=== PATIENT | male | born 1990 | race Caucasian/White ===

== ENCOUNTER 2025-04-27 03:04 | Emergency (ER) | payer OTHER, BC ==
[2025-04-27] MEDS ORDERED: Ibuprofen 200 MG TAB ONE (03:14)
== END 2025-04-27 04:53 | disposition home or self-care (01) ==
LOC: CSHERS 03:04
DX: S20.212A Contusion of left front wall of thorax, initial encounter (principal); W01.0XXA Fall on same level from slipping, tripping and stumbling without subsequent striking against object, initial encounter; Y99.0 Civilian activity done for income or pay
CPT/HCPCS: 71250; 74176